=== PATIENT | male | born 2000 | race Two or more races ===

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

== ENCOUNTER 2021-06-01 00:08 | Emergency (ER) | payer SELFPAY ==
[~2021-06-01] VITALS: Ht 182.9 cm; Wt 77.1 kg
--- NOTE | 2021-06-01 01:44 | NUR ---
BIBS C/O ITCHINESS AROUND ANUS [id number]. PATIENT ALERT AND ORIENTED X3. AMBULATORY WITH NON LABORED BREATING IN BED 04 ON MONITOR AND POX. CURRENTLY AWAITING MD LYMAN.
--- NOTE | 2021-06-01 03:38 | NUR ---
STOOL OB SAMPLE COLLECTED BY DR. MARIANGEL RAIN AND SENT TO LAB
[2021-06-01] MEDS ORDERED: PSYL0.525 PO (03:42)
[2021-06-01] MEDS ORDERED: CLOT15CR5 TP (03:42)
[2021-06-01] MEDS ORDERED: DOCU100C36 PO (03:42)
--- NOTE | 2021-06-01 04:05 | NUR ---
PT DISCHARGE TO HOME, DC INSTRUCTIONS GIVEN, VERBALIZES UNDERSTANDING. VS STABLE. DENIES PAIN.
[2021-06-01 04:10] VITALS: BP 127/75
[2021-06-01 04:55] LABS: OCCULT BLOOD STOOL NEGATIVE (NEGATIVE)
== END 2021-06-01 04:11 | disposition home or self-care (01) ==
LOC: ER 00:28
DX: B35.9 Dermatophytosis, unspecified (principal); K64.8 Other hemorrhoids
CPT/HCPCS: 82272-TC

== ENCOUNTER 2021-06-22 00:14 | Emergency (ER) | payer MEDICAID ==
[~2021-06-22] VITALS: Ht 182.9 cm; Wt 77.1 kg
[~2021-06-22 00:14] MED LIST: CLOT15CR5 TP; DOCU100C36 PO; PSYL0.525 PO
--- NOTE | 2021-06-22 00:30 | NUR ---
TO ER BED 6. BIBS C/O ALLERGIC REACTION TO UNKNOWN SOURCE. +SWOLLEN LIPS +ITCHY EYES, PT DENIES SOB BUT FELT LIKE THROAT WAS SCRATCHY. DENIES ANY CHEST PAIN. NOT IN RESPIRATORY DISTRESS. CONNECTED TO MONITOR
[2021-06-22] MEDS ORDERED: diphenhydrAMINE HCL 25 MG CAPSULE ONE (00:59)
[2021-06-22] MEDS ORDERED: DEXAMETHASONE SOD PHOSPHATE 10 MG/ML VIAL ONE (00:59)
[2021-06-22] MEDS ORDERED: DEXAMETHASONE SOD PHOSPHATE 4 MG/ML VIAL IM ONE (01:00)
[2021-06-22] MEDS ORDERED: diphenhydrAMINE HCL 25 MG CAPSULE PO ONE (01:00)
[2021-06-22 01:25] VITALS: BP 15/80
--- NOTE | 2021-06-22 01:25 | NUR ---
Patient discharged to home in stable condition. Written and verbal after care instructions given. Patient verbalizes understanding of instruction.
== END 2021-06-22 01:27 | disposition home or self-care (01) ==
LOC: ER 00:17
DX: T78.3XXA Angioneurotic edema, initial encounter (principal); Z60.2 Problems related to living alone; Z79.899 Other long term (current) drug therapy
CPT/HCPCS: 96372; 99283; J1100; Q0163

== ENCOUNTER 2021-06-28 14:39 | Emergency (ER) | payer MEDICAID ==
[~2021-06-28] VITALS: Ht 182.9 cm; Wt 77.1 kg
[2021-06-28 14:45] VITALS: BP 129/79
[2021-06-28] MEDS ORDERED: AMOX/CLAVULANATE 875 MG TABLET PO ONE (15:00)
[2021-06-28] MEDS ORDERED: TDAP [DIPH/PERTUSSIS/TET] 0.5 ML VIAL IM ONE ×2 (15:00→15:28)
[2021-06-28] MEDS ORDERED: AMOX-430 PO (15:05)
[2021-06-28] MEDS ORDERED: AMOX/CLAVULANATE 875 MG TABLET ONE (15:28)
--- NOTE | 2021-06-28 15:38 | NUR ---
Patient discharged to home in stable condition. Written and verbal after care instructions given. Patient verbalizes understanding of instruction.
== END 2021-06-28 15:38 | disposition home or self-care (01) ==
LOC: ER 14:41
DX: S81.812A Laceration without foreign body, left lower leg, initial encounter (principal); Z60.2 Problems related to living alone; Z79.899 Other long term (current) drug therapy; W54.0XXA Bitten by dog, initial encounter; Y93.89 Activity, other specified; Y92.89 Other specified places as the place of occurrence of the external cause; Y99.8 Other external cause status
CPT/HCPCS: 90471; 90715; 99283; A6403

== ENCOUNTER 2021-07-06 23:32 | Emergency (ER) | payer MEDICAID ==
[~2021-07-06] VITALS: Ht 182.9 cm; Wt 77.1 kg
[~2021-07-06 23:32] MED LIST changes: +AMOX-430 PO
[2021-07-07] MEDS ORDERED: METOCLOPRAMIDE HCL 10 MG/2 ML VIAL IV ONE
[2021-07-07] MEDS ORDERED: IV NS 0.9% 1,000 ML BAG IV ONE
[2021-07-07] MEDS ORDERED: PROCHLORPERAZINE EDISYLATE 10 MG/2 ML VIAL IVP ONE
--- NOTE | 2021-07-07 | NUR ---
BIBS A/O X 3. C/O HEADACHE LIKE PAIN IN THE BACK OF HEAD X6 DAYS. PT STATES HE HAD SYNCOPE PT
[2021-07-07] MEDS ORDERED: METOCLOPRAMIDE HCL 10 MG/2 ML VIAL ONE (00:21)
[2021-07-07] MEDS ORDERED: PROCHLORPERAZINE EDISYLATE 10 MG/2 ML VIAL ONE (00:21)
[2021-07-07] MEDS ORDERED: SUMATRIPTAN SUCCINATE 6 MG/0.5 ML VIAL SQ ONE ×2 (00:22)
[2021-07-07] MEDS ORDERED: IBUP-1957 PO (02:21)
[2021-07-07] MEDS ORDERED: METO-295 PO (02:21)
[2021-07-07] MEDS ORDERED: SUMA100T16 PO (02:21)
[2021-07-07 02:30] VITALS: BP 130/69
--- NOTE | 2021-07-07 02:30 | NUR ---
PT DISCHARGED IN STABLE CONDITION
== END 2021-07-07 02:30 | disposition home or self-care (01) ==
LOC: ER 23:36
DX: R51.9 Headache, unspecified (principal); Z60.2 Problems related to living alone; Z79.899 Other long term (current) drug therapy
CPT/HCPCS: 70450; 96361; 96372; 96374; 96375; 99285; J0780; J2765; J3030